=== PATIENT | female | born 1930 | race Caucasian/White ===

== ENCOUNTER 2018-05-25 11:56 | Day surgery (SDC) | payer OTHER ==
[~2018-05-25] VITALS: Ht 154.9 cm; Wt 68.0 kg
[~2018-05-25 11:56] MED LIST: LIDOCAINE 2% (SDV) 5 ML INJ ONE
[2018-05-25 13:42] VITALS: Ht 154.9 cm; Wt 68.0 kg
[2018-05-25] MEDS ORDERED: CARB15DR73 BOTH EARS (14:02)
[2018-05-25] MEDS ORDERED: LOSA50TA14 PO (14:02)
[2018-05-25] MEDS ORDERED: FURO20TA3 PO (14:02)
[2018-05-25] MEDS ORDERED: DOCU-159 PO (14:02)
[2018-05-25] MEDS ORDERED: B12 FOLATE (14:02)
[2018-05-25] MEDS ORDERED: PYRIDOXINE (14:02)
[2018-05-25] MEDS ORDERED: POLY17PO28 PO (14:02)
[2018-05-25] MEDS ORDERED: BRIM15DR7 BOTH EYES (14:02)
[2018-05-25] MEDS ORDERED: METF-849 PO (14:02)
[2018-05-25] MEDS ORDERED: DORZ10DR5 BOTH EYES (14:02)
[2018-05-25] MEDS ORDERED: SCOPOLAMINE (14:02)
[2018-05-25] MEDS ORDERED: ZOLP10TA5 PO (14:02)
[2018-05-25] MEDS ORDERED: LOSA25TA12 PO (14:02)
[2018-05-25] MEDS ORDERED: ATOR40TA68 PO (14:02)
[2018-05-25] MEDS ORDERED: EPIN0.3P4 IM (14:02)
[2018-05-25] MEDS ORDERED: MECL-77 PO (14:02)
[2018-05-25] MEDS ORDERED: AMIO200T4 PO (14:02)
[2018-05-25] MEDS ORDERED: [UNRECOGNIZED DRUG - OTHER] (14:02)
[2018-05-25] MEDS ORDERED: METOPROLOL (14:02)
[2018-05-25] MEDS ORDERED: FOL8 PO (14:02)
[2018-05-25] MEDS ORDERED: [UNRECOGNIZED DRUG - CODE] MC (14:02)
[2018-05-25 14:27] VITALS: BP 182/77; PULSE 69; RESP 15
--- NOTE | 2018-05-25 14:55 | PREAC ---
Date/Time of Note Date/Time of Note DATE: 05/25/18 TIME: 14:50 Anesthesia Eval and Record Evaluation Time Pre-Procedure Interview DATE: 05/25/18 TIME: 14:50 Age 87 Sex female NPO: 8 hrs Preoperative diagnosis NAUSEA AND SCREENING COLONOSCOPY FOR COLORECTAL CANCER Planned procedure EGD AND COLONOSCOPY Past Medical History Past Medical History: Includes Cardio: HTN, CAD, Arrythmia (PACEMAKER 1% DEPENDENT ) Endo: Diabetes Neuro: Other (DIZZINESS (UNDIAGNOSED DESPITE MUTIPLE TESTS)) Surgery & Anesthesia Issues No known issue Meds Anticoagulation: No Beta Demond within 24 hr: Yes Reported Medications Cream Base No.31 (Transdermal Pain Base) 500 Gm Cream.gm., 500 GM MC 05/25/18 Zolpidem Tartrate* (Zolpidem Tartrate*) 10 Mg Tablet, 10 MG PO QHS PRN for INSOMNIA, #30 TAB 05/25/18 [Metoprolol] No Conflict Check, 25 MG 05/25/18 Metformin* (Glucophage*) 500 Mg Tab, 500 MG PO WITH MEALS, #90 TAB 05/25/18 Losartan Potassium* (Losartan Potassium*) 50 Mg Tablet, 50 MG PO DAILY, TAB 05/25/18 Furosemide* (Furosemide*) 20 Mg Tablet, 20 MG PO DAILY, #60 TAB 05/25/18 Epinephrine (Epipen 2-Frantz) 0.3 Mg/0.3 Ml Pen.injctr, 0.3 MG IM DIRECTED PRN for ALLERGIC REACTION, #1 EA 05/25/18 Folic Acid* (Folic Acid*) 0.8 Mg Tablet, 0.8 MG PO DAILY, TAB 05/25/18 [B6 Natural 100MG.] No Conflict Check 05/25/18 [B12 Folate] No Conflict Check 05/25/18 Dorzolamide Hcl* (Dorzolamide Hcl*) 10 Ml Drops, 1 DROP BOTH EYES TID, #1 EA 05/25/18 Brimonidine Tartrate* (Brimonidine Tartrate*) 0.2%-15ML Drop Opht, 1 DROP BOTH EYES Q8, #1 EA 05/25/18 Amiodarone Hcl* (Amiodarone Hcl*) 200 Mg Tablet, 200 MG PO DAILY, #30 TAB 05/25/18 [Scopollamine Base] No Conflict Check 05/25/18 Polyethylene Glycol* (Polyethylene Glycol*) 17 Gm Powd.pack, 17 GM PO DAILY, #30 PACKET 05/25/18 Meclizine Hcl* (Meclizine Hcl*) 25 Mg Tablet, 25 MG PO Q8H PRN for DIZZINESS, TAB 05/25/18 Losartan Potassium* (Losartan Potassium*) 25 Mg Tablet, 25 MG PO DAILY, TAB 05/25/18 Docusate Sodium* (Docusate Sodium*) 100 Mg Capsule, 100 MG PO DAILY, #30 CAP 05/25/18 Carbamide Peroxide* (Carbamide Peroxide*) 6.5% - 15 Ml Drops, 10 DROP BOTH EARS BID, EA 05/25/18 Atorvastatin* (Atorvastatin*) 40 Mg Tablet, 10 MG PO QHS, #30 TAB 05/25/18 Meds reviewed: Yes Allergies Coded Allergies: No Known Drug Allergies (Verified Allergy, Unknown, 05/25/18) Allergies Reviewed: Yes Labs/Studies Labs Reviewed: Reviewed by anesthesiologist test: N/A Pre-procedure Exam Last vitals Vital Signs Date Temp Pulse Resp B/P (MAP) Pulse Ox O2 O2 Flow FiO2 Time Delivery Rate 05/25/18 97.7 69 15 182/77 93 Room Air 14:27 (112) Airway: Adequate mouth opening, Adequate thyromental dist Mallampati: Mallampati IV Teeth: Normal Lung: Normal Heart: Normal ASA Physical Status ASA physical status: 3 Emergency: None Pre-operative Attestations Prior to commencing anesthesia and surgery, the patient was re-evaluated, there was verification of: *The patient's identity *The results of appropriate recent lab work and preoperative vital signs *The above evaluation not changing prior to induction *Anesthetic plan, risk benefits, alternative and complications discussed with patient/family; questions answered; patient/family understands, accepts and wishes to proceed. JAMEEL PIMENTEL DO May 25, 2018 14:55
[2018-05-25] MEDS ORDERED: hydrALAzine 20 MG INJ ONE (16:06)
[2018-05-25] MEDS ORDERED: PROPOFOL 20 ML ONE (16:08)
[2018-05-25] MEDS ORDERED: ONDANSETRON 4 MG INJ ONE (16:43)
--- NOTE | 2018-05-25 17:00 | HPN ---
Date/Time of Note Date/Time of Note DATE: 05/25/18 TIME: 17:00 Interval H&P Admission Note Pt. seen H&P reviewed: No system changes TATYANA HERNANDEZ May 25, 2018 17:00
--- NOTE | 2018-05-26 14:21 | PAC ---
Date/Time of Note Date/Time of Note DATE: 05/26/18 TIME: 14:20 Post-Anesthesia Notes Post-Anesthesia Note Last documented vital signs Vital Signs Date Temp Pulse Resp B/P (MAP) Pulse Ox O2 O2 Flow FiO2 Time Delivery Rate 05/25/18 98 72 17 160/73 95 Room Air 1559 Activity: WNL Respiratory function: WNL Cardiovascular function: WNL Mental status: Baseline Pain reasonably controlled: Yes Hydration appropriate: Yes Nausea/Vomiting absent: Yes JAMEEL PIMENTEL DO May 26, 2018 14:21
== END 2018-05-25 16:47 | disposition home or self-care (01) ==
LOC: GIL 11:56
PROVIDERS: ATTEND Internal Medicine Gastroenterology
DX: K92.1 Melena (principal); K29.50 Unspecified chronic gastritis without bleeding; K64.8 Other hemorrhoids; D12.6 Benign neoplasm of colon, unspecified; I10 Essential (primary) hypertension; I25.10 Atherosclerotic heart disease of native coronary artery without angina pectoris; E11.9 Type 2 diabetes mellitus without complications; Z95.0 Presence of cardiac pacemaker; E66.9 Obesity, unspecified; Z68.29 Body mass index [BMI] 29.0-29.9, adult
CPT/HCPCS: 43239; 45385; 82962; 88305; 88312; J0360; Z7610; J2405